=== PATIENT | male | born 1945 | race Two or more races ===

== ENCOUNTER 2020-09-12 19:41 | Emergency (ER) | payer OTHER ==
[~2020-09-12] VITALS: Ht 170.2 cm; Wt 108.9 kg
== END 2020-09-13 12:14 | disposition home or self-care (01) ==
LOC: ER 19:41
DX: I63.89 Other cerebral infarction (principal); R47.81 Slurred speech; R53.1 Weakness; R20.2 Paresthesia of skin; R51.9 Headache, unspecified; I10 Essential (primary) hypertension; J44.9 Chronic obstructive pulmonary disease, unspecified; Z72.0 Tobacco use; Z03.818 Encounter for observation for suspected exposure to other biological agents ruled out
CPT/HCPCS: 70544

== ENCOUNTER 2020-10-02 09:40 | Outpatient (CLI) | payer OTHER | END 2020-10-02 09:41 | disposition home or self-care (01) | LOC: NUCLEAR 09:40 | PROVIDERS: ATTEND Internal Medicine Cardiovascular Disease | DX: I10 Essential (primary) hypertension (principal); J44.9 Chronic obstructive pulmonary disease, unspecified; I63.50 Cerebral infarction due to unspecified occlusion or stenosis of unspecified cerebral artery ==